=== PATIENT | male | born 1955 | race Caucasian/White ===

== ENCOUNTER → 2017-12-12 | Outpatient (CLI) | payer BC ==
[~2017-12-12] MED LIST: ANTIBIOTIC; AUGMENTIN 875-1 EACH PO; CELEBREX200 MG PO; COLACE100 MG PO; COLCRYS0.6 MG PO; DITROPAN XL5 MG PO; IOPAMIDOL 370 MG/ML 200 ML INFUS..BTL INJ ONE; LEVAQUIN500 MG PO; NORCO 10-325 T1 EACH PO; SODIUM CHLORIDE 0.9% 250ML 250 ML ONE; TYLENOL WITH C1 EACH PEG; ULTRAM50 MG PO
[2017-12-12 12:22] LABS: CREATININE, SERUM 0.81 mg/dL (0.72-1.25)
--- NOTE | 2017-12-12 13:56 | Diagnostic Imaging Report ---
PROCEDURE: CT ABDOMEN \T\ PELVIS W/WO CONTRAST TECHNIQUE: The abdomen and pelvis were scanned utilizing a multidetector helical scanner from the diaphragm to the lesser trochanter before and after the IV administration of 150 cc Isovue 370 and the oral administration of water. CT urogram protocol was performed. Coronal and sagittal multiplanar reformations were obtained. COMPARISON: CT abdomen and pelvis with contrast 01/05/2016. INDICATIONS: HEMATURIA FINDINGS: LOWER THORAX: Right lower lobe calcified granuloma. Calcified right hilar lymph node. 4 mm left lower lobe pulmonary nodule (series 4, image 19), unchanged. 3 mm left lower lobe pulmonary nodule (series 4, image 8), unchanged. HEPATOBILIARY: Geographic fatty infiltration involving the right lobe. Otherwise no focal hepatic lesion. No intrahepatic biliary ductal dilatation. The gallbladder has been removed. SPLEEN: No splenomegaly. PANCREAS: No focal masses or ductal dilatation. ADRENALS: No adrenal nodules. KIDNEYS/URETERS: No renal, ureteral, or bladder calculi. Urographic phase images show no filling defects within the upper collecting systems, visualized proximal ureters, or urinary bladder. The mid-portions of the ureters are poorly opacified with contrast; however, there is no evidence wall thickening or periureteral mass. No solid or cystic renal mass lesions. PELVIC ORGANS/BLADDER: The urinary bladder is incompletely distended but otherwise unremarkable. Postsurgical changes of prostatectomy. PERITONEUM / RETROPERITONEUM: No ascites. No pneumoperitoneum. Lymph nodes: No pelvic sidewall, retroperitoneal, or mesenteric lymphadenopathy. VESSELS: Limited evaluation without intravenous contrast. There is mild atherosclerotic calcification of the abdominal aorta and branch vessels without aneurysmal dilatation. GI TRACT: The large bowel shows no evidence of distention or wall thickening. The sigmoid colon and rectum are collapsed and poorly evaluated. The appendix is normal. There is no small bowel dilatation to suggest obstruction. BONES AND SOFT TISSUES: No focal soft tissue abnormalities. Broad-based posterior disc protrusion at L5-S1, unchanged. Degenerative facet arthropathy at L4-5 and L5-S1, unchanged. IMPRESSION: No renal mass, calculi, or filling defect within the upper collecting systems, ureters, or urinary bladder to explain the reported history of hematuria. Postsurgical changes related to interval prostatectomy. No pelvic lymphadenopathy or osseous destructive lesions. Dictated by: Wayne Santoro M.D. on 12/12/2017 at 14:06 Electronically approved by: Wayne Santoro M.D. on 12/12/2017 at 14:06
== END ==
LOC: CT 10:38 → MERGE 11:00
PROVIDERS: ATTEND Urology
DX: R31.9 Hematuria, unspecified (principal)
CPT/HCPCS: 36415; 74178; 82565; 84520; J7050; Q9967